=== PATIENT | female | born 1955 | race Asian ===

== ENCOUNTER 2022-04-07 10:18 | Outpatient (CLI) | payer OTHER | END 2022-04-07 18:58 | disposition home or self-care (01) | LOC: RAD 10:18 | PROVIDERS: ATTEND Physician Assistant | DX: M05.79 Rheumatoid arthritis with rheumatoid factor of multiple sites without organ or systems involvement (principal); R06.02 Shortness of breath ==

== ENCOUNTER 2022-06-15 13:16 | Outpatient (CLI) | payer OTHER ==
[2022-06-15 13:40] LABS: PLATELET COUNT 256 K/uL (152-353)
[2022-06-15 14:11] LABS: POTASSIUM 3.8 mmol/L (3.6-5.2)
== END 2022-06-15 19:32 | disposition home or self-care (01) ==
LOC: LAB 13:16
PROVIDERS: ATTEND Internal Medicine
DX: M32.8 Other forms of systemic lupus erythematosus (principal); Z79.899 Other long term (current) drug therapy
CPT/HCPCS: 80053; 80061; 81002; 84439; 84443; 85027

== ENCOUNTER 2022-06-30 09:38 | Outpatient (CLI) | payer OTHER | END 2022-06-30 17:00 | disposition home or self-care (01) | LOC: MRI 09:38 | PROVIDERS: ATTEND Internal Medicine | DX: R51.9 Headache, unspecified (principal) | CPT/HCPCS: A9576 ==

== ENCOUNTER 2022-07-28 14:18 | Outpatient (CLI) | payer OTHER ==
[2022-07-28 14:38] LABS: PLATELET COUNT 257 K/uL (152-353)
== END 2022-07-28 19:09 | disposition home or self-care (01) ==
LOC: LAB 14:18
PROVIDERS: ATTEND Internal Medicine
DX: Z00.00 Encounter for general adult medical examination without abnormal findings (principal); Z79.899 Other long term (current) drug therapy
CPT/HCPCS: 80053; 80061; 81002; 84439; 84443; 85027

== ENCOUNTER 2022-09-22 12:07 | Outpatient (CLI) | payer OTHER | END 2022-09-22 19:41 | disposition home or self-care (01) | LOC: LABW 12:07 | PROVIDERS: ATTEND Nurse Practitioner Family | DX: M05.79 Rheumatoid arthritis with rheumatoid factor of multiple sites without organ or systems involvement (principal); M32.8 Other forms of systemic lupus erythematosus; M35.00 Sjogren syndrome, unspecified; Z79.899 Other long term (current) drug therapy ==

== ENCOUNTER 2022-10-26 10:56 | Outpatient (CLI) | payer OTHER | END 2022-10-26 19:01 | disposition home or self-care (01) | LOC: MAMMO 10:56 | PROVIDERS: ATTEND Internal Medicine | DX: Z12.31 Encounter for screening mammogram for malignant neoplasm of breast (principal) ==

== ENCOUNTER 2022-11-24 09:47 | Outpatient (CLI) | payer OTHER | END 2022-11-24 21:46 | disposition home or self-care (01) | LOC: CT 09:47 | PROVIDERS: ATTEND Internal Medicine | DX: R10.32 Left lower quadrant pain (principal) | CPT/HCPCS: 36415; 82565; 84520; Q9963 ==

== ENCOUNTER 2022-12-29 12:04 | Outpatient (CLI) | payer OTHER | END 2022-12-29 19:29 | disposition home or self-care (01) | LOC: LABW 12:04 | PROVIDERS: ATTEND Nurse Practitioner Family | DX: E55.9 Vitamin D deficiency, unspecified (principal); E56.8 Deficiency of other vitamins; M05.79 Rheumatoid arthritis with rheumatoid factor of multiple sites without organ or systems involvement; Z79.899 Other long term (current) drug therapy; M32.9 Systemic lupus erythematosus, unspecified | CPT/HCPCS: 36415; 85597; 85598; 85613; 85730; 85732; 86146; 86147; 86148; 86849 ==

== ENCOUNTER 2023-01-04 10:17 | Day surgery (SDC) | payer OTHER ==
[~2023-01-04] VITALS: Ht 165.1 cm; Wt 68.0 kg
== END 2023-01-04 14:55 | disposition home or self-care (01) ==
LOC: OR 10:17
PROVIDERS: ATTEND Internal Medicine Gastroenterology
PROC: 0DBP8ZX Excision of Rectum, Via Natural or Artificial Opening Endoscopic, Diagnostic (ICD-10-PCS; principal; 2023-01-04)
DX: Z12.11 Encounter for screening for malignant neoplasm of colon (principal); K62.1 Rectal polyp; K64.0 First degree hemorrhoids; K59.00 Constipation, unspecified; Z86.73 Personal history of transient ischemic attack (TIA), and cerebral infarction without residual deficits; M06.9 Rheumatoid arthritis, unspecified; E07.9 Disorder of thyroid, unspecified; M79.7 Fibromyalgia; M32.9 Systemic lupus erythematosus, unspecified; I73.00 Raynaud's syndrome without gangrene
CPT/HCPCS: J2704; J7120